=== PATIENT | male | born 1975 | race African-American/Black ===

== ENCOUNTER 2018-12-22 08:02 | Emergency (ER) | payer OTHER ==
[~2018-12-22] VITALS: Ht 182.9 cm; Wt 134.5 kg
[2018-12-22] MEDS ORDERED: METO1TAB33 PO (08:53)
[2018-12-22] MEDS ORDERED: THERTAB12 PO (08:53)
[2018-12-22] MEDS ORDERED: IBUP-1114 PO (08:53)
[2018-12-22] MEDS ORDERED: ROSU40TA4 PO (08:53)
[2018-12-22] MEDS ORDERED: BENZ200C70 PO (08:58)
[2018-12-22] MEDS ORDERED: IBUP-1022 PO (08:58)
[2018-12-22 09:01] VITALS: BP 133/83
== END 2018-12-22 09:22 | disposition home or self-care (01) ==
LOC: M ED 08:02
DX: J06.9 Acute upper respiratory infection, unspecified (principal)

== ENCOUNTER 2020-11-17 15:49 | Emergency (ER) | payer OTHER ==
[~2020-11-17] VITALS: Ht 182.9 cm; Wt 139.3 kg
[~2020-11-17 15:49] MED LIST: BENZ200C70 PO; IBUP-1022 PO; IBUP-1114 PO; METO1TAB33 PO; ROSU40TA4 PO; THEREMS-M1 TAB PO
[2020-11-17 15:50] VITALS: BP 139/77
[2020-11-17] MEDS ORDERED: TESS100C PO (17:36)
== END 2020-11-17 18:16 | disposition home or self-care (01) ==
LOC: M ED 15:49
DX: R05 Cough (principal); Z11.52 Encounter for screening for COVID-19; E78.5 Hyperlipidemia, unspecified; Z79.899 Other long term (current) drug therapy

== ENCOUNTER → 2021-01-16 | Outpatient (CLI) | payer OTHER ==
[~2021-01-16] MED LIST changes: +APRI0.37 PO; +D31000TA2 PO; +TESS100C PO; +VITMTA PO
== END ==
LOC: M LABSMTC 09:34
PROVIDERS: ATTEND Anesthesiology
DX: Z01.812 Encounter for preprocedural laboratory examination (principal); Z20.822 Contact with and (suspected) exposure to COVID-19

== ENCOUNTER 2021-01-21 11:15 | Day surgery (SDC) | payer OTHER ==
[~2021-01-21] VITALS: Ht 182.9 cm; Wt 140.6 kg
[~2021-01-21 11:15] MED LIST changes: +NS 1,000 ML IV ONE
[2021-01-21] MEDS ORDERED: LIDOCAINE 2% 100MG/5ML SDV (FOR ANES.) As Ordered ONE (12:42)
[2021-01-21] MEDS ORDERED: propofoL 200 MG/20 ML VIAL As Ordered ONE (12:42)
[2021-01-21] MEDS ORDERED: propofoL 500 MG/50 ML VIAL As Ordered ONE (12:56)
[2021-01-21 14:06] VITALS: BP 131/75
== END 2021-01-21 14:00 | disposition home or self-care (01) ==
LOC: M OPP 11:15
PROVIDERS: ATTEND Internal Medicine Gastroenterology
DX: K63.5 Polyp of colon (principal); D50.9 Iron deficiency anemia, unspecified; K52.9 Noninfective gastroenteritis and colitis, unspecified; K64.8 Other hemorrhoids; G47.30 Sleep apnea, unspecified; Z79.899 Other long term (current) drug therapy